=== PATIENT | female | born 1970 | race Caucasian/White ===

== ENCOUNTER 2018-02-21 18:27 | Emergency (ER) | payer OTHER ==
[2018-02-21 19:36] LABS: BASOPHILS # (AUTO) 0.1 10^3/uL (0.0-0.1); BASOPHILS % (AUTO) 1.1 %; EOSINOPHILS # (AUTO) 0.1 10^3/uL (0.0-0.7); EOSINOPHILS % (AUTO) 1.5 %; INR 1.2 (0.8-1.2); LYMPHOCYTES # (AUTO) 2.1 10^3/uL (1.5-3.5); LYMPHOCYTES % (AUTO) 33.7 %; MEAN CORPUSCULAR HEMOGLOBIN 20.3 pg (27.0-31.0); MEAN PLATELET VOLUME 7.8 fL (7.9-10.8); MONOCYTES # (AUTO) 0.4 10^3/uL (0.0-1.0); MONOCYTES % (AUTO) 7.1 %; NEUTROPHILS # (AUTO) 3.4 10^3/uL (1.5-6.6); NEUTROPHILS % (AUTO) 56.6 %; PLT - PLATELET COUNT 444 10^3/uL (130-450); RED BLOOD COUNT 2.69 10^6/uL (4.20-5.40); RED CELL DISTRIBUTION WIDTH 18.5 % (12.0-15.0); WHITE BLOOD COUNT 6.1 x10^3/uL (4.8-10.8)
[2018-02-21 19:37] LABS: HGB - HEMOGLOBIN 5.5 g/dL (12.0-16.0)
[2018-02-21 19:45] LABS: ALBUMIN 4.3 g/dL (3.2-5.5); ALBUMIN/GLOBULIN RATIO 1.3 (1.0-2.2); BILIRUBIN,TOTAL 0.7 mg/dL (0.2-1.0); CALCIUM 9.4 mg/dL (8.5-10.3); CREATININE 0.6 mg/dL (0.4-1.0); TOTAL PROTEIN 7.7 g/dL (6.7-8.2)
--- NOTE | 2018-02-21 19:47 | ED Physician Documentation ---
History of Present Illness - Stated complaint Stated Complaint: CRITICAL LABS/SENT BY [facility] - Chief complaint Chief Complaint: General - History obtained from History obtained from: Patient - History of Present Illness Timing: Today (She has had irregular menses for quite some time, early last month she had very heavy menses that lasted a week and a half with heavy clots every day and going through about 10 pads every day. She was feeling weak and went to the [facility] today, had a low hemoglobin and was sent here for further evaluation and treatment. She has not had any significant bleeding recently.) Review of Systems Ten Systems: 10 systems reviewed and negative Constitutional: reports: Fatigue. denies: Fever, Chills Cardiac: denies: Chest pain / pressure, Palpitations Respiratory: denies: Dyspnea, Cough GI: denies: Abdominal Pain, Nausea, Vomiting PD PAST MEDICAL HISTORY - Past Medical History Neuro: Multiple sclerosis - Past Surgical History Past Surgical History: No - Present Medications Home Medications: Ambulatory Orders Medication Instructions Recorded Confirmed No Known Home Medications [No 02/21/18 02/21/18 Known Home Medications] - Allergies Allergies/Adverse Reactions: Allergies Allergy/AdvReac Type Severity Reaction Status Date / Time No Known Drug Allergies Allergy Verified 02/21/18 18:42 - Social History Does the pt smoke?: No Smoking Status: Never smoker Does the pt drink ETOH?: Yes Does the pt have substance abuse?: No PD ED PE NORMAL - Vitals Vital signs reviewed: Yes - General General: Alert and oriented X 3, No acute distress, Other (Pale) - HEENT HEENT: PERRL, EOMI - Abdomen Abdomen: Normal bowel sounds, Soft, Non tender - Extremities Extremities: No edema, No calf tenderness / cord - Neuro Neuro: Alert and oriented X 3, Normal speech - Psych Psych: Normal mood, Normal affect Results - Vitals Vitals: Vital Signs - 24 hr 02/21/18 02/21/18 02/21/18 18:38 19:18 20:46 Temperature 36.8 C 36.8 C Heart Rate 99 94 99 Respiratory 17 18 19 Rate Blood Pressure 122/93 H 132/61 H 104/61 O2 Saturation 100 100 02/21/18 02/21/18 02/21/18 20:51 20:56 21:01 Temperature 36.9 C 37.0 C Heart Rate 87 86 88 Respiratory 19 13 12 Rate Blood Pressure 123/58 L 112/66 104/63 O2 Saturation 100 02/21/18 02/21/18 02/21/18 21:21 21:30 21:36 Temperature 36.5 C 97.7 C H 37.0 C Heart Rate 98 95 98 Respiratory 19 16 13 Rate Blood Pressure 128/35 L 128/35 L 129/76 O2 Saturation 02/21/18 02/21/18 02/21/18 21:46 22:12 22:35 Temperature 36.7 C 37.1 C 36.9 C Heart Rate 88 79 97 Respiratory 14 16 17 Rate Blood Pressure 127/66 106/79 134/68 H O2 Saturation 02/21/18 02/21/18 23:37 23:42 Temperature 37.1 C 37 C Heart Rate 91 85 Respiratory 17 18 Rate Blood Pressure 116/69 131/72 H O2 Saturation Oxygen O2 Source Room air - EKG (time done) 2034 Rate: Rate (enter#) (90) Rhythm: NSR (with pvcs) [place]: Normal QRS: Low voltage Ischemia: Normal ST segments Computer interpretation: Agree with computer - Labs Labs: Laboratory Tests 02/21/18 02/21/18 02/21/18 19:10 19:10 19:10 WBC 6.1 RBC 2.69 L Hgb 5.5 L* Hct 18.8 L* MCV 70.0 L MCH 20.3 L MCHC 29.0 L RDW 18.5 H Plt Count 444 MPV 7.8 L Neut # (Auto) 3.4 Lymph # (Auto) 2.1 [place] # (Auto) 0.4 Eos # (Auto) 0.1 Baso # (Auto) 0.1 Absolute Nucleated RBC 0.01 Nucleated RBC % 0.1 PT 13.0 H INR 1.2 Sodium Potassium Chloride Carbon Dioxide Anion Gap BUN Creatinine Estimated GFR (MDRD) Glucose Calcium Total Bilirubin AST ALT Alkaline Phosphatase Total Protein Albumin Globulin Albumin/Globulin Ratio Lipase Serum HCG, Qual Blood Type A POSITIVE Blood Type Recheck Antibody Screen NEGATIVE Crossmatch IS Only 02/21/18 02/21/18 02/21/18 19:10 19:10 19:10 WBC RBC Hgb Hct MCV MCH MCHC RDW Plt Count MPV Neut # (Auto) Lymph # (Auto) [place] # (Auto) Eos # (Auto) Baso # (Auto) Absolute Nucleated RBC Nucleated RBC % PT INR Sodium 137 Potassium 3.4 L Chloride 106 Carbon Dioxide 24 Anion Gap 7.0 BUN 13 Creatinine 0.6 Estimated GFR (MDRD) 108 Glucose 100 Calcium 9.4 Total Bilirubin 0.7 AST 22 ALT 18 Alkaline Phosphatase 40 L Total Protein 7.7 Albumin 4.3 Globulin 3.4 Albumin/Globulin Ratio 1.3 Lipase 33 Serum HCG, Qual Blood Type Cancelled Cancelled Blood Type Recheck Antibody Screen Cancelled Cancelled Crossmatch IS Only See Detail See Detail 02/21/18 02/21/18 20:05 20:05 WBC RBC Hgb Hct MCV MCH MCHC RDW Plt Count MPV Neut # (Auto) Lymph # (Auto) [place] # (Auto) Eos # (Auto) Baso # (Auto) Absolute Nucleated RBC Nucleated RBC % PT INR Sodium Potassium Chloride Carbon Dioxide Anion Gap BUN Creatinine Estimated GFR (MDRD) Glucose Calcium Total Bilirubin AST ALT Alkaline Phosphatase Total Protein Albumin Globulin Albumin/Globulin Ratio Lipase Serum HCG, Qual NEGATIVE Blood Type Blood Type Recheck A POSITIVE Antibody Screen Crossmatch IS Only - Rads (name of study) Pelvic Sono and CT Radiology: EMP read contemporaneously (All concerning for cystic neoplasm, v large arising from L ovary.) PD MEDICAL DECISION MAKING - ED course Complexity details: reviewed old records ED course: CBC from the base reviewed, hemoglobin 5.1, hematocrit 16.6. She was given 3 units PRBCs here. Imaging as shown. 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 I tried to call [facility] but unable to get in touch with PCP or anyone habilitation assistant there. - Sepsis Event Vital Signs: Vital Signs - 24 hr 02/21/18 02/21/18 02/21/18 18:38 19:18 20:46 Temperature 36.8 C 36.8 C Heart Rate 99 94 99 Respiratory 17 18 19 Rate Blood Pressure 122/93 H 132/61 H 104/61 O2 Saturation 100 100 02/21/18 02/21/18 02/21/18 20:51 20:56 21:01 Temperature 36.9 C 37.0 C Heart Rate 87 86 88 Respiratory 19 13 12 Rate Blood Pressure 123/58 L 112/66 104/63 O2 Saturation 100 02/21/18 02/21/18 02/21/18 21:21 21:30 21:36 Temperature 36.5 C 97.7 C H 37.0 C Heart Rate 98 95 98 Respiratory 19 16 13 Rate Blood Pressure 128/35 L 128/35 L 129/76 O2 Saturation 02/21/18 02/21/18 02/21/18 21:46 22:12 22:35 Temperature 36.7 C 37.1 C 36.9 C Heart Rate 88 79 97 Respiratory 14 16 17 Rate Blood Pressure 127/66 106/79 134/68 H O2 Saturation 02/21/18 02/21/18 23:37 23:42 Temperature 37.1 C 37 C Heart Rate 91 85 Respiratory 17 18 Rate Blood Pressure 116/69 131/72 H O2 Saturation Oxygen O2 Source Room air Departure - Departure Disposition: Home, Self Care Clinical Impression: Ovarian mass, left, Anemia due to blood loss Condition: Good Record reviewed to determine appropriate education?: Yes Comments: Follow-up with your doctor tomorrow with copies of the ultrasound and CAT scan potentially for expedited referral to gynecology/oncology.
[2018-02-21 20:40] LABS: HCG,QUALITATIVE BLOOD NEGATIVE
--- NOTE | 2018-02-21 22:29 | Ultrasound Report ---
Procedure Date: 02/21/2018 Accession Number: [id number] / [id number] Procedure: US - Pelvic Complete CPT Code: FULL RESULT: EXAM: PELVIC ULTRASOUND. EXAM DATE: 02/21/2018 09:35 PM. CLINICAL HISTORY: Pelvic pain. COMPARISON: None. TECHNIQUE: Realtime transabdominal pelvic scan performed to identify the uterus and adnexa and as an overview of other pelvic structures with static image documentation. FINDINGS: The uterus measures 10.3 x 4.7 x 5 cm with a volume of the 127.3 cc. The endometrium measures 7 mm. The uterus is anteverted. The uterus is only evaluated transabdominally but appears within normal limits. Large complex multiseptated cystic mass seen superior and left lateral to the uterus, extends up to the level of the umbilicus, measures 12.3 x 10.9 x 17.3 cm. This could represents a left ovarian cystic neoplasm and further workup is recommended. The right ovary measures 2.5 x 1.3 x 1.1 cm with a volume of 1.8 cc, and appears within normal limits. No free fluid is seen. IMPRESSION: Large complex multiseptated cystic mass seen superior and left lateral to the uterus, extends up to the level of the umbilicus, measures 12.3 x 10.9 x 17.3 cm. This could represents a left ovarian cystic neoplasm and further workup is recommended. RADIA
[2018-02-21] MEDS ORDERED: IOPAMIDOL-300 100 ML VIAL ONE (22:54)
[2018-02-21] MEDS ORDERED: IOPAMIDOL-300 100 ML VIAL IVP ONE (23:04)
[2018-02-21] MEDS ORDERED: LORazepam 0.5 MG TABLET PO STA (23:11)
--- NOTE | 2018-02-21 23:31 | CT Report ---
Procedure Date: 02/21/2018 Accession Number: [id number] / [id number] Procedure: CT - Abdomen/Pelvis W/ CPT Code: FULL RESULT: EXAM: CT ABDOMEN AND PELVIS EXAM DATE: 02/21/2018 11:06 PM. CLINICAL HISTORY: IV only, Cystic pelvic mass eval. COMPARISONS: PELVIS COMPLETE 02/21/2018. TECHNIQUE: Routine helical CT imaging was performed through the abdomen and pelvis. IV contrast: ISOVUE 300 100mL. Enteric contrast: No. Reconstructions: Coronal and sagittal. In accordance with CT protocol optimization, one or more of the following dose reduction techniques were utilized for this exam: automated exposure control, adjustment of mA and/or KV based on patient size, or use of iterative reconstructive technique. FINDINGS: Lung Bases: Unremarkable. Liver: Normal. No masses. Gallbladder/Bile Ducts: Unremarkable. Spleen: Normal. Pancreas: Normal. Adrenal Glands: Normal. Kidneys: Normal. No masses or hydronephrosis. Peritoneal Cavity/Bowel: Normal. No free fluid, free air or adenopathy. No masses or acute inflammatory process. The appendix is well visualized and normal. Pelvic Organs: There is a 20.6 x 11.0 x 11.8 cm midline pelvic cystic mass which appears continuous with the left ovary. The mass contains numerous irregular, enhancing septations. There is no associated free fluid or lymphadenopathy within the pelvis. Vasculature: No aneurysms or other significant abnormality. Bones: No significant abnormality. Other: None. IMPRESSION: 1. Multiloculated, complex 20.6 cm midline pelvic cystic mass concerning for neoplasm likely arising from the left ovary. 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 2. No associated fluid collections, extra ovarian masses or acute abnormality. RADIA
[2018-02-22 01:32] VITALS: BP 122/58
== END 2018-02-22 01:50 | disposition home or self-care (01) ==
LOC: ED 18:27
DX: R19.09 Other intra-abdominal and pelvic swelling, mass and lump (principal); D50.0 Iron deficiency anemia secondary to blood loss (chronic)
CPT/HCPCS: 36415; 36430; 74177; 76856; 80053; 83690; 84703; 85025; 85610; 86850; 86900; 86901; 86920; 93005; 99284; A9270; P9016; Q9967